=== PATIENT | male | born 1955 | race Caucasian/White ===

== ENCOUNTER 2018-08-29 07:51 | Emergency (ER) | payer BC ==
[~2018-08-29] VITALS: Ht 180.3 cm; Wt 100.0 kg
[2018-08-29 07:59] VITALS: Ht 180.3 cm; Wt 100.0 kg
[2018-08-29] MEDS ORDERED: GLUCOPHAGE1000 MG PO (08:04)
[2018-08-29] MEDS ORDERED: OMEPRAZOLE20 M1 PO (08:05)
[2018-08-29] MEDS ORDERED: MOBIC7.5 MG PO (08:05)
[2018-08-29] MEDS ORDERED: TRAZODONE HCL150 MG PO (08:06)
[2018-08-29] MEDS ORDERED: GLIPIZIDE10 MG PO (08:06)
[2018-08-29] MEDS ORDERED: LISINOPRIL20 MG PO (08:06)
[2018-08-29] MEDS ORDERED: TRICOR145 MG PO (08:07)
[2018-08-29 08:29] LABS: BASOPHILS 0.4 % (0-2); EOSINOPHILS 2.5 % (0-7); HEMATOCRIT 45.1 % (42.0-54.0); HEMOGLOBIN 15.9 g/dL (13.5-17.5); IMMATURE GRANULOCYTES 0.4 % (0-5); LYMPHOCYTES 17.1 % (15-50); MCH 32.8 pg (26.0-34.0); MCHC 35.3 g/dL (31.0-37.0); MEAN PLATELET VOLUME 10.2 fL (7.4-10.4); MONOCYTES 6.4 % (2-11); NEUTROPHILS 73.2 % (40-80); PLATELET COUNT 174 10x3/uL (130-400); RBC 4.85 10x6/uL (4.20-6.10); RDW 13.5 % (11.5-14.5); WBC 6.7 10x3/uL (4.8-10.8)
[2018-08-29 08:35] LABS: APTT 27.8 SECONDS (22.8-39.4); PROTIME 12.7 SECONDS (11.6-15.0)
[2018-08-29 08:36] LABS: ALBUMIN 3.9 g/dL (3.4-5.0); ALKALINE PHOSPHATASE 82 U/L (46-116); ALT (SGPT) 35 U/L (10-68); BILIRUBIN - TOTAL 0.39 mg/dL (0.2-1.3); CALC OSMOLALITY 292 mosm/kg (275-300); CALCIUM 9.3 mg/dL (8.5-10.1); CARBON DIOXIDE 21.9 mmol/L (21.0-32.0); CHLORIDE - SERUM 104 mmol/L (98-107); CREATININE - SERUM 1.1 mg/dL (0.6-1.3); GLUCOSE 339 mg/dL (74-106); POTASSIUM - SERUM 4.2 mmol/L (3.5-5.1); PROTEIN - SERUM 7.3 g/dL (6.4-8.2); SODIUM 139 mmol/L (136-145); UREA NITROGEN 17 mg/dL (7-18); eGFR NON AFRICAN AMERICAN 72 mL/min (90-120)
[2018-08-29 08:47] LABS: CKMB 2.8 U/L (0.0-3.6); CREATINE KINASE 120 UL (21-232)
[2018-08-29 08:48] LABS: TROPONIN-I < 0.017 ng/mL (0.000-0.060)
[2018-08-29 09:05] LABS: APPEARANCE CLEAR (CLEAR); BILIRUBIN NEGATIVE (NEGATIVE); COLOR YELLOW (YELLOW); GLUCOSE 1000 mg/dL (NEGATIVE); KETONE NEGATIVE (NEGATIVE); NITRITE NEGATIVE (NEGATIVE); PROTEIN NEGATIVE (NEGATIVE); UROBILINOGEN NORMAL (NORMAL)
[2018-08-29 10:35] VITALS: BP 158/87
== END 2018-08-29 10:35 | disposition home or self-care (01) ==
LOC: D.ER 07:51
PROVIDERS: Family Medicine
DX: E11.65 Type 2 diabetes mellitus with hyperglycemia (principal); R42 Dizziness and giddiness; I10 Essential (primary) hypertension; F17.200 Nicotine dependence, unspecified, uncomplicated

== ENCOUNTER 2019-06-13 22:56 | Emergency (ER) | payer BC ==
[~2019-06-13] VITALS: Ht 180.3 cm; Wt 97.7 kg
[~2019-06-13 22:56] MED LIST: GLIPIZIDE10 MG PO; GLUCOPHAGE1000 MG PO; LISINOPRIL20 MG PO; MOBIC7.5 MG PO; OMEPRAZOLE20 M1 PO; TRAZODONE HCL150 MG PO; TRICOR145 MG PO
[2019-06-13 23:05] VITALS: Ht 180.3 cm; Wt 97.7 kg
[2019-06-14] MEDS ORDERED: ARTHROTEC EC 71 EACH PO (00:33)
[2019-06-14 00:48] VITALS: BP 164/79
== END 2019-06-14 00:49 | disposition home or self-care (01) ==
LOC: D.ER 22:56
DX: M47.896 Other spondylosis, lumbar region (principal); M12.88 Other specific arthropathies, not elsewhere classified, other specified site; I10 Essential (primary) hypertension; Z72.0 Tobacco use; E11.9 Type 2 diabetes mellitus without complications; Z79.84 Long term (current) use of oral hypoglycemic drugs